=== PATIENT | male | born 1980 | race Caucasian/White ===

== ENCOUNTER 2019-05-09 19:01 | Emergency (ER) | payer OTHER ==
[~2019-05-09] VITALS: Ht 177.8 cm; Wt 106.6 kg
[2019-05-09 19:03] VITALS: BP 133/89
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
[2019-05-09] MEDS ORDERED: METFORMIN HCL1000 M1 ORAL (19:08)
--- NOTE | 2019-05-09 19:11 | NUR ---
ED Nurse Note: ERMD at bedside.
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
--- NOTE | 2019-05-09 19:22 | NUR ---
ED Nurse Note: Patient went over for CT with production technologist.
--- NOTE | 2019-05-09 19:35 | NUR ---
ED Nurse Note: Patient returned from CT exam along with isotope technician.
--- NOTE | 2019-05-09 20:23 | NUR ---
ED Nurse Note: Patient's and sister are at bedside.
[2019-05-09] MEDS ORDERED: CYCLOBENZAPRINE10 MG ORAL (20:37)
[2019-05-09] MEDS ORDERED: ROBAXIN-500MG ORAL (20:52)
--- NOTE | 2019-05-09 21:05 | NUR ---
ED Nurse Note: Patient cleared for discharge by ERMD. Patient exhibits no s/s of acute distress, is ambulatory with steady gait. Patient verbalized understanding of discharge instructions. patient ID band was removed. Patient departed with all belongings and was accompanied by his .
[2019-05-09 21:07] VITALS: BP 133/89
--- NOTE | 2019-05-12 10:16 | Diagnostic Imaging Report ---
EXAM: CT Head Without Intravenous Contrast CLINICAL HISTORY: PAIN TECHNIQUE: Axial computed tomography images of the head brain without intravenous contrast. CTDI is 72 mGy and DLP is 1842.20 mGy-cm. One or more of the following dose reduction techniques were used: automated exposure control, adjustment of the mA and or kV according to patient size, use of iterative reconstruction technique. COMPARISON: No relevant prior studies available. FINDINGS: Brain: There are couple scattered hyperdensities within the temporal lobe and left parietal lobe. Findings may represent intraparenchymal hemorrhage in the correct clinical setting. Neoplasm or vascular anomaly are not excluded. No significant white matter disease. Ventricles: Unremarkable. No ventriculomegaly. Bones joints: Unremarkable. No acute fracture. Soft tissues: Unremarkable. Sinuses: Unremarkable as visualized. No acute sinusitis. Mastoid air cells: Unremarkable as visualized. No mastoid effusion. IMPRESSION: There are couple scattered hyperdensities within the temporal lobe and left parietal lobe. Findings may represent intraparenchymal hemorrhage, neoplasm or vascular anomaly. Consider MRI with contrast for further evaluation if indicated. <MYCVCSECTION> [employer] 05 09 19 19:54 Verify Receipt Verified receipt with Dr. aWyne on 05 09 19:55 (-07:00)
== END 2019-05-09 21:08 | disposition home or self-care (01) ==
LOC: EDBD 19:01 → EMR 19:19
DX: S16.1XXA Strain of muscle, fascia and tendon at neck level, initial encounter (principal); G93.9 Disorder of brain, unspecified; G95.9 Disease of spinal cord, unspecified; E11.9 Type 2 diabetes mellitus without complications; V43.52XA Car driver injured in collision with other type car in traffic accident, initial encounter; Y92.410 Unspecified street and highway as the place of occurrence of the external cause
CPT/HCPCS: 70450; 72125; 99282